=== PATIENT | female | born 1980 ===

== ENCOUNTER 2021-01-29 08:44 | Day surgery (SDC) | payer OTHER ==
[2021-01-29] MEDS ORDERED: NAPR500T14 PO (12:02)
[2021-01-29] MEDS ORDERED: MORGIDOX100 MG PO (12:03)
== END 2021-01-29 19:00 | disposition home or self-care (01) ==
LOC: CIR.AMB 08:44 → EDSTATUS 10:15 → CIR.AMB 10:15 → SURH 10:15 → CIR.AMB 19:00
PROVIDERS: ATTEND Obstetrics & Gynecology
DX: D25.0 Submucous leiomyoma of uterus (principal); N84.0 Polyp of corpus uteri; Z20.822 Contact with and (suspected) exposure to COVID-19